=== PATIENT | female | born 1950 | race Caucasian/White ===

== ENCOUNTER 2025-03-08 08:12 | Outpatient (REF) | payer OTHER, SELFPAY ==
--- OUTSIDE RECORDS SUMMARY | 2025-03-04 10:30 | XMS_ITS | Encounter Summary ---
Author Organization [employer] Address [address] [place] [address] 7 [place] [address] Care Team Providers Care Mobile Equipment Mechanic Name Role Phone Demarcus Wilks MD Primary Care Prov ider Reason for Referral * Consultation (Routine) - Authorized Specialty Diagnoses / Procedures Referred By Contac t Referred To Contact Optometry Diagnoses Type 2 diabetes mellitus without complication, without long-term current use of insulin (HCC) Demarcus Wilks MD [address] [place] [address] Phone: tel: fax: [facility] [place] [address] [place] [address] Phone: tel:[phone] fax: Referral ID Status Reason Start Date Expiration Date Visits Requested Visits Authorized [id number] Authorized Specialty Services Required 03/04/2025 03/04/2026 1 1 Encounter Details Date Type Department Care Team ([facility] st Contact Info) Description 03/04/2025 10:30 AM EST Telemedicine [facility] CHC MED & PEDS [address] [place] [address] Demarcus Wilks MD [address] [place], [place] [phone] Type 2 diabetes mellitus without complication, without long-term current use of insulin (HCC) (Primary Dx); Primary hypertension Social History Tobacco Use Types Packs/Day Years Used Date Smoking Tobacco: Former Cigarettes 0.3 26 S tarted: 1984 Smokeless Tobacco: Current Alcohol Use Standard Drinks/Week Comments Never 0 (1 standard drink = 0.6 oz pur e alcohol) Depression Answer Date Recorded Patient Health Questionnaire-9 Score 11 02/28/2025 Patient Health Questionnaire-9 Score 11 02/28/2025 Last PHQ-9: Questionnaire Data Not on file 1 Housing Stability Answer Date Recorded What is your housing situation today? I do not have housing (Staying with others, in a hotel, in a chcf, living outside on the street, on a beach, in a car, or in a park 01/18/[address] you li ve. Do you have problems with any of the following? None of the above 01/18/2025 Food Insecurity Answer Date Recorded Within the past 12 months, y ou worried that your food would run out before you got money to buy more: Never True 2024 Within the past 12 months,th e food you bought just didn't last and you didn't have enough money to get more: Sometimes True 01/18/2025 Transportation Answer Date Recorded In the past 12 months, has l ack of transportation kept you from medical appts, meetings, work or from getting things needed for daily living? Yes, it has kept me from non-medical meetings, work, or getting things that I need 01/18/2025 Utilities Answer Date Recorded In the past 12 months, has t he [employer], gas, oil or water [employer] threatened to shut off services in your home? No 01/18/2025 Depression Answer Date Recorded Patient Health Questionnaire-2 Score 2 02/28/2025 Internet Access Answer Date Recorded Internet Access Q1 Yes 01/18/2025 Internet Access Q2 Not on file 01/18/2025 Comments Unknown Sex and Gender Information Value Date Recorded Sex Assigned at Female 01/17/2025 4:41 PM EDT Legal Sex Female 4:40 PM EDT Gender Identity Female 01/18/2025 8:58 AM EDT Sexual Orientation Straight 01/18/2025 8: 58 AM EDT documented as of this encounter Progress Notes * Demarcus Rodrigues MD - 03/04/2025 10:30 AM EST Subjective Patient ID: Pratibha Taveras is a 74 y.o. female who presents for No chief complaint on file.. Diabetes She presents for her follow-up diabetic visit. She has type 2 diabetes mellitus. Her disease coursehas been stable. Pertinent negatives for diabetes include no foot ulcerations, no polydipsia, no polyphagia and no polyuria. Review of Systems Endocrine: Negative for polydipsia, polyphagia and polyuria. Objective Physical Exam Neurological: General: No focal deficit present. Mental Status: She is oriented to person, place, and time. Psychiatric: Mood and Affect: Mood normal. Behavior: Behavior normal. Assessment/Plan Problem List Items Addressed This Visit Type 2 diabetes mellitus without complication, without long-term current use of insulin (HCC) - Primary [facility], keep low carb/no sugar diet, follow up in 2 months with new labs Relevant Orders CBC auto differential Comprehensive Metabolic Panel Lipid Panel, Standard Hemoglobin A1c Albumin, Random Urine W/Creatinine TSH W/Reflex to FT4 Hepatitis C Antibody with Reflex to HCV, RNA, Quantitative, Real-Time PCR Referral to Optometry Primary hypertension New blood pressure monitor will be ordered, keep low sodium diet and exercise as tolerated, keep blood pressure <130/80, follow up in 2 months documented in this encounter Miscellaneous Notes * Assessment & Plan Note - Dmearcus Rodrigues MD - 03/04/2025 11:58 AM ESTAssociated Problem(s): Type 2 diabetes mellitus without complication, without long-term current useof insulin (HCC) [facility], keep low carb/no sugar diet, follow up in 2 months with new labs * Assessment & Plan Note - Demarcus Rodrigues MD - 03/04/2025 11:57 AM ESTAssociated Problem(s): Primary hypertension New blood pressure monitor will be ordered, keep low sodium diet and exercise as tolerated, keep blood pressure <130/80, follow up in 2 months documented in this encounter Plan of Treatment Upcoming Encounters Date Type Department Care Team (Late st Contact Info) Description 06/28/2025 1:00 PM EST Office Visit [facility] OPTOMETRY [address] [place], [place] [phone] Hilary Frias, OD [address] [place] [address] Scheduled Orders Name Type Priority Associated Diagnoses Orde r Schedule CBC auto differential Lab Routine Type 2 diabetes mellitus without complication, without long-term current use of insulin (HCC) Expected: 03/04/2025 (Approximate), Expires: 03/04/2026 Comprehensive Metabolic Panel Lab Routine Type 2 diabetes mellitus without complication, without long-term current use of insulin (HCC) Expected: 03/04/2025 (Approximate), Expires: 03/04/2026 Lipid Panel, Standard Lab Routine Type 2 diabetes mellitus without complication, without long-term current use of insulin (HCC) Expected: 03/04/2025 (Approximate), Expires: 03/04/2026 Hemoglobin A1c Lab Routine Type 2 diabetes mellitus without complication, without long-term current use of insulin (HCC) Expected: 03/04/2025 (Approximate), Expires: 03/04/2026 Albumin, Random Urine W/Creatinine Lab Routine Type 2 diabetes mellitus without complication, without long-term current use of insulin (HCC) Expected: 03/04/2025 (Approximate), Expires: 03/04/2026 TSH W/Reflex to FT4 Lab Routine Type 2 diabetes mellitus without complication, without long-term current use of insulin (HCC) Expected: 03/04/2025 (Approximate), Expires: 03/04/2026 Hepatitis C Antibody with Reflex to HCV, RNA, Quantitative, Real-Time PCR Lab Routine Type 2 diabetes mellitus without complication, without long-term current use of insulin (HCC) Expected: 03/04/2025, Expires: 03/04/2026 Scheduled Referrals Name Type Priority Associated Diagnoses Orde r Schedule Referral to Optometry Outpatient Referral Routine Type 2 diabetes mellitus without complication, without long-term current use of insulin (HCC) Expected: 03/04/2025 (Approximate), Expires: 03/04/2026 documented as of this encounter Visit Diagnoses Diagnosis Type 2 diabetes mellitus without complication, without long-term current use of insulin (HCC)- Primary Primary hypertension Unspecified essential hypertension documented in this encounter Additional Health Concerns Assessment Noted Time PHQ-9 Depression Total Score: 11 025 2:48 PM EDT documented as of this encounter Care Teams Mobile Equipment Mechanic Relationship Specialty Start Date End Date Demarcus Wilks MD [address] [place] [id number] PCP - General Internal Medicine 01/18/25 documented as of this encounter
--- OUTSIDE RECORDS SUMMARY | 2025-03-08 08:33 | XMS_ITS | Encounter Summary ---
Author Organization [employer] Address [address] [facility] 7t [place] [address] Care Team Providers Care Fund Accountant Name Role Phone Demarcus Wilks MD Primary Care Prov ider Encounter Details Date Type Department Care Team (Latest Contact Info) Description 03/04/2025 Travel Social History Tobacco Use Types Packs/Day Years [...] with others, in a hotel, in a snf, living outside on the street, on a [...] the past 12 months, has t he electric, gas, oil or water company threatened to shut off services in your [...] AM EDT documented as of this encounter Plan of Treatment Upcoming Encounters Date Type Department Care Team (Late st Contact Info) Description 06/28/2025 1:00 PM EST Office Visit [facility] OPTOMETRY [address] [place] [address] Hilary Frias, OD [address] [place] [address] documented as of this encounter Visit Diagnoses Not on filedocumented in this encounter Additional Health Concerns Assessment Noted Time PHQ-9 Depression Total Score: 11 025 2:48 PM EDT documented as of this encounter Care Teams Fund Accountant Relationship Specialty Start Date End Date Demarcus Wilks MD [address] [place] [address] PCP - General Internal Medicine 01/18/25 documented as of this encounter
--- OUTSIDE RECORDS SUMMARY | 2025-03-08 08:33 | XMS_ITS | Encounter Summary ---
Author Organization [employer] Address [address] [place] [address] 7t [place] [address] Care Team Providers Care Manager Trust Name Role Phone Demarcus Wilks MD Primary Care Prov ider Reason for Referral * Consultation (Urgent) - Authorized Specialty Diagnoses / Procedures Referred By Contac t Referred To Contact Gastroenterology Diagnoses Positive colorectal cancer screening using Cologuard test Demarcus Wilks MD [address] [place] [address] Phone: tel: fax: Imelda Lan MD [address] [place] [address] Phone: tel: fax: Referral ID Status Reason Start Date Expiration Date Visits Requested Visits Authorized [id number] Authorized Specialty Services Required 02/26/2026 1 1 Encounter Details Date Type Department Care Team ([facility] st Contact Info) Description 02/26/2025 Telephone [facility] CHC MED & PEDS [address] [place], [place] [phone] Demarcus Wilks MD [address] [place], [place] [phone] Social History Tobacco Use Types Packs/Day Years [...] with others, in a hotel, in a correction, living outside on the street, on a [...] AM EDT documented as of this encounter Functional Status * Over the past 2 weeks, how often have you been bothered by any of the following problems? Question Answer Date of Assessment Author Patient Health Questionnaire-2 Score 2 02/28/2025 2:48 PM EDT Jona Mcintosh * Little interest or pleasure in doing things Answer Date of Assessment Author Several days 02/28/2025 2:48 PM EDT Jona Berrios * Feeling down, depressed, or hopeless Answer Date of Assessment Author Several days 02/28/2025 2:48 PM EDT Jona Berrios * Trouble falling or staying asleep, or sleeping too much Answer Date of Assessment Author More than half the days 02/28/2025 2:48 PM EDT Jona Issa * Feeling tired or having little energy Answer Date of Assessment Author Several days 02/28/2025 2:48 PM EDT Jona Berrios * Poor appetite or overeating Answer Date of Assessment Author More than half the days 02/28/2025 2:48 PM EDT Jona Issa * Feeling bad about yourself - or that you are a failure or have let yourself or your family down Answer Date of Assessment Author More than half the days 02/28/2025 2:48 PM EDT Jona Issa * Trouble concentrating on things, such as reading the newspaper or watching television Answer Date of Assessment Author Several days 02/28/2025 2:48 PM EDT Jona Berrios * Moving or speaking so slowly that other people could have noticed? Or the opposite - being so fidgety or restless that you have been moving around a lot more than usual. Answer Date of Assessment Author Several days 02/28/2025 2:48 PM EDT Jona Berrios * Thoughts that you would be better off or hurting yourself in some way Answer Date of Assessment Author Not at all 02/28/2025 2:48 PM EDT Jona Berrios * Patient Health Questionnaire-9 Score Answer Date of Assessment Author 11 02/28/2025 2:48 PM EDT Jona Berrios * How difficult have these problems made it for you to do your work, take care of things at home, or get along with other people? Answer Date of Assessment Author Somewhat difficult 02/28/2025 2:48 PM EDT Jona Ramirez * Over the last 2 weeks, how often have you been bothered by any of the following problems? Question Answer Date of Assessment Author Feeling nervous, anxious, or on edge 1 02/28/2025 2:48 PM EDT Jona Zhang Not being able to stop or control worrying 1 02/28/2025 2:48 PM EDT Jona Zhang Worrying too much about different things 2 02/28/2025 2:48 PM EDT Jona Zhang Trouble relaxing 1 02/28/2025 2:48 PM EDT Jona Issa Being so restless that it is hard to sit still 2 02/28/2025 2:48 PM EDT Jona Zhang Becoming easily annoyed or irritable 0 02/28/2025 2:48 PM EDT Jona Zhang Feeling afraid as if something awful might happen 2 02/28/2025 2:48 PM EDT Jona Sosa CELIA-7 Total Score 9 02/28/2025 2:48 PM EDT Jona Zhang documented as of this encounter Plan of Treatment Upcoming Encounters Date Type Department Care Team (Late st Contact Info) Description 06/28/2025 1:00 PM EST Office Visit [facility] OPTOMETRY [address] [place] [address] Hilary Frias, OD [address] [place] [address] Scheduled Referrals Name Type Priority Associated Diagnoses Order Schedule Referral to Gastroenterology Outpatient Referral Urgent Positive colorectal cancer screening using Cologuard test Expected: 02/26/2025 (Approximate), Expires: 02/26/2026 documented as of this encounter Visit Diagnoses Diagnosis Positive colorectal cancer screening using Cologuard test- Primary documented in this encounter Additional Health Concerns Assessment Noted Time PHQ-9 Depression Total Score: 8 01/19/20 25 9:27 AM EDT documented as of this encounter Care Teams Manager Trust Relationship Specialty Start Date End Date Demarcus Wilks MD [address] [place] [id number] PCP - General Internal Medicine 01/18/25 documented as of this encounter
--- OUTSIDE RECORDS SUMMARY | 2025-03-08 08:34 | XMS_ITS | Encounter Summary ---
Author Organization [employer] Address [address] [place] [address] 7t [place] [address] Care Team Providers Care Industrial Sociologist Name Role Phone Demarcus Wilks MD Primary Care Prov ider Reason for Visit * Reason Onset Date Comments Med Refill 02/27/2025 Encounter Details Date Type Department Care Team ([facility] st Contact Info) Description 02/27/2025 Refill [facility] CHC MED & PEDS [address] [place], [place] [phone] Demarcus Wilks MD [address] [place] [address] Neuropathy Social History Tobacco Use Types Packs/Day Years [...] Several days 02/28/2025 2:48 PM EDT Jona Sosa * Poor appetite or overeating Answer Date [...] might happen 2 02/28/2025 2:48 PM EDT Jnoa Sosa CELIA-7 Total Score 9 02/28/2025 2:48 PM EDT Jona Zhang documented as of this encounter Plan of Treatment Upcoming Encounters Date Type Department Care Team (Late st Contact Info) Description 06/28/2025 1:00 PM EST Office Visit [facility] OPTOMETRY [address] [place], [place] [phone] Hilary Frias, OD [address] [place] [address] documented as of this encounter Visit Diagnoses Diagnosis Neuropathy Mononeuritis of unspecified site documented in this encounter Additional Health Concerns Assessment Noted Time PHQ-9 Depression Total Score: 8 01/19/20 25 9:27 AM EDT documented as of this encounter Care Teams Industrial Sociologist Relationship Specialty Start Date End Date Demarcus Wilks MD [address] [place] [address] PCP - General Internal Medicine 01/18/25 documented as of this encounter
--- OUTSIDE RECORDS SUMMARY | 2025-03-08 08:34 | XMS_ITS | Encounter Summary ---
Author Organization [email or web address] Address [address] [place] [address] 7[address] [place] [address] Care Team Providers Care As400 Administrator Name Role Phone Demarcus Wilks MD Primary Care Prov ider Reason for Visit * Reason Onset Date Comments pt1 02/04/2025 Encounter Details Date Type Department Care Team ([facility] st Contact Info) Description 02/04/2025 Telephone [facility] CHC MED & PEDS [address] [place], [place] [phone] Demarcus Wilks MD [address] [place] [address] pt1 Social History Tobacco Use Types Packs/Day Years Used Date Smoking Tobacco: Former Cigarettes 0.3 26 S tarted: 1984 Smokeless Tobacco: Current Alcohol Use Standard Drinks/Week Comments Never 0 (1 standard drink = 0.6 oz pur e alcohol) Depression Answer Date Recorded Patient Health Questionnaire-9 Score 8 01/18/2025 Patient Health Questionnaire-9 Score 8 01/18/2025 Last PHQ-9: Questionnaire Data Not on file 0 01/18/2025 Housing Stability Answer Date Recorded What is your housing situation today? I do not have housing (Staying with others, in a hotel, in a nursing home, living outside on the street, on a [...] Date Recorded Patient Health Questionnaire-2 Score 2 01/18/2025 Internet Access Answer Date Recorded Internet Access Q1 Yes 01/18/2025 Internet Access Q2 Not on file 01/18/2025 Comments Unknown Sex and Gender Information Value Date Recorded Sex Assigned at Female 01/17/2025 4:41 PM EDT Legal Sex Female 4:40 PM EDT Gender Identity Female 01/18/2025 8:58 AM EDT Sexual Orientation Straight 01/18/2025 8: 58 AM EDT documented as of this encounter Miscellaneous Notes * Telephone Encounter - Mick Mahajan - 02/04/2025 2:32 PM EDT Patient calling requesting PT1 Home Address verified: Y/N: Yes Provider name or facility name: [address] Escort needed: Y/N: No Do you have a wheelchair: Y/N: No Visits: (2x month) documented in this encounter Plan of Treatment Upcoming Encounters Date Type Department Care Team (Late st Contact Info) Description 06/28/2025 1:00 PM EST Office Visit [facility] OPTOMETRY [address] [place] [address] Hilary Frias, OD [address] [place] [address] documented as of this encounter Visit Diagnoses Not on filedocumented in this encounter Additional Health Concerns Assessment Noted Time PHQ-9 Depression Total Score: 8 01/19/20 25 9:27 AM EDT documented as of this encounter Care Teams As400 Administrator Relationship Specialty Start Date End Date FernnadezDemarcus Jimenez MD [address] [place] [id number] PCP - General Internal Medicine 01/18/25 documented as of this encounter
--- OUTSIDE RECORDS SUMMARY | 2025-03-08 08:34 | XMS_ITS | Clinical Summary ---
Author Organization [employer] Address [address] [place] [address] Care Team Providers Care Rn Admit Name Role Phone Demarcus Wilks MD Primary Care Prov ider Allergies Active Allergy Reactions Criticality Noted Date Comments Penicillins Swelling High 01/18/2025 Medications * This document contains information received from the source organization and may not represent a complete record from that organization. levothyroxine (Synthroid, Levoxyl) 125 MCG tablet Take 12.5 mcg by mouth before breakfast. Active glimepiride (Amaryl) 4 MG tablet Take 4 mg by mouth before breakfast. Active lisinopril 40 MG tablet Take 40 mg by mouth Once per day. Active SITagliptin-me tFORMIN (Janumet) 50-1000 MG tablet Take 1 tablet by mouth with breakfast and with evening meal. 180 tablet 3 01/19/20 25 Active famotidine (Pepcid) 20 MG tablet Take 1 tablet (20 mg) by mouth if needed at bedtime for heartburn. 90 tablet 3 01/19/20 25 026 Active gabapentin (Neurontin) 300 MG capsuleIndicat ions:Neuropath y Take 1 capsule (300 mg) by mouth at bedtime. 30 capsule 02/23/20 25 025 Active gabapentin (Neurontin) 300 MG capsule Take 1 capsule (300 mg) by mouth at bedtime. 30 capsule 1 02/22/20 Active FREESTYLE LITE test strip Use to test blood sugar 2 times daily 100 each 12 02/28/20 25 Active Lancets misc Use to test blood sugar 2 times daily 100 each 02/28/20 Active Alcohol Swabs 70 % pads Use to test blood sugar 2 times daily 100 each 02/28/20 Active Blood Glucose Monitoring Suppl (FreeStyle [place] Lite) w/Device kit Use to test blood sugar 2 times daily 1 kit 02/28/20 Active simvastatin (Zocor) 40 MG tablet Take 1 tablet (40 mg) by mouth at bedtime. 90 tablet 3 02/28/20 Active Blood Pressure kit 1 kit Once per day. 1 kit 03/04/20 Active simvastatin (Zocor) 40 MG tablet Take 40 mg by mouth at bedtime. Discontinued(Re order (will not trigger notification to Pharmacy)) gabapentin (Neurontin) 300 MG capsule Take 300 mg by mouth at bedtime. 025 Discontinued(Re order (will not trigger notification to Pharmacy)) Active Problems Problem Noted Date Diagnosed Date Type 2 diabetes mellitus wit hout complication, without long-term current use of insulin 03/04/2025 Assessment & Plan (03/04/2025 11:58 AM EST): [facility] keep low carb/no sugar diet, follow up in 2 months with new labs Primary hypertension 03/04/2025 Assessment & Plan (03/04/2025 11:57 AM EST): New blood pressure monitor will be ordered, keep low sodium diet and exercise as tolerated, keep blood pressure <130/80, follow up in 2 months Anxiety about health 02/28/2025 Positive colorectal cancer screening using Colog uard test 02/27/2025 Assessment & Plan (02/27/2025 12:39 PM EDT): Discussed findings with patient , will refer to gastroenterology, phone number provided Encounter for medical examination to establish c are 01/18/2025 Assessment & Plan (01/18/2025 10:05 AM EDT): Last pcp visit 6-8 months ago ER: - Hospitalization: stroke 2011 left sided weakness Pmhx: DM, HTN, thyroid, hyperlipidemia, gerd Pshx: csec x2 , tonsillectomy 1955 All: PNC Meds: as above A0 Encounters * This document contains information received from the source organization and may not represent a complete record from that organization. Date Type Department Care Team Description 03/04/2025 10:30 AM EST Telemedicine [facility] [address] [place] [address] Demarcus Wilks MD Type 2 diabetes mellitus without complication, without long-term current use of insulin (HCC) (Primary Dx); Primary hypertension 03/04/2025 Travel 02/28/2025 Travel 02/27/2025 11:30 AM EDT Telemedicine [facility] [address] [place] [address] Demarcus Wilks MD Positive colorectal cancer screening using Cologuard test (Primary Dx) 02/27/2025 Refill [facility] [address] [place] [address] Demarcus Wilks MD Neuropathy 02/27/2025 Travel 02/26/2025 Telephone [facility] [address] [place] [address] Demarcus Wilks MD 02/26/2025 Telephone [facility] [address] [place] [address] Demarcus Wilks MD 02/25/2025 Travel 02/23/2025 Telephone [facility] [address] [place] [address] Demarcus Wilks MD Chart Prep 02/21/2025 Orders Only [facility] [address] [place] [address] Demarcus Wilks MD 02/21/2025 Travel 02/20/2025 Travel 02/20/2025 Refill [facility] [address] [place] [address] Demarcus Wilks MD Neuropathy 02/12/2025 Patient Outreach [facility] [address] [place] [address] Demarcus Wilks MD Care Coordination (CH[facility] outreach for SDOH housing search-referral completed ) 02/12/2025 Telephone [facility] [address] [place] [address] Demarcus Wilks MD MAMMOGRAM ORDER 02/04/2025 Patient Outreach [facility] [address] [place] [address] Demarcus Wilks MD Care Coordination ([facility] outreach for SDOH PT-1 and food needs-LVM ) 02/04/2025 Telephone [facility] [address] [place] [address] Demarcus Wilks MD pt1 01/18/2025 9:45 AM EDT Telemedicine [facility] [address] [place] [address] Demarcus Wilks MD Encounter for medical examination to establish care (Primary Dx); Screening for colon cancer; Encounter for screening mammogram for malignant neoplasm of breast; Current mild episode of major depressive disorder without prior episode (CMS/HCC) 01/18/2025 Travel from Last 3 Months Family History Medical History Relation Name Comments Stroke Father Diabetes Mother Hepatitis Mother Kidney failure Mother Relation Name Status Comments Father Mother Social History Tobacco Use Types Packs/Day Years Used Date Smoking Tobacco: Former Cigarettes 0.3 26 S tarted: 1985 Smokeless Tobacco: Current Alcohol Use Standard Drinks/Week [...] with others, in a hotel, in a prison, living outside on the street, on a [...] Orientation Straight 01/18/2025 8: 58 AM EDT Plan of Treatment Upcoming Encounters Date Type Department Care Team (Late st Contact Info) Description 06/28/2025 1:00 PM EST Office Visit [facility] [address] [place] [address] Hilary Frias, OD [address] [place] [address] Health Maintenance Due Date Last Done Comments CT Colonography 1951 Colonoscopy 1950 Diabetes: Hemoglobin A1C 1951 FIT 1951 Lipid Panel 1950 Sigmoidoscopy 1951 Diabetes: Foot Exam 07/12/1961 Eye Exam 07/12/1961 Hepatitis C Screening 07/12/1969 DTaP/Tdap/Td Vaccines (1 - Tdap) 07/12/1970 Diabetes: Urine Protein Screening 07/12/1970 Pneumococcal Vaccine: 50+ Years (1 of 2 - PCV) 07/12/1970 Mammogram 1991 Zoster Vaccines (1 of 2) 07/12/2001 COVID-19 Vaccine (1 - 2023-2 5 season) 2024 Depression Monitoring 08/29/2025 02/28/2025 , 02/28/2025 SDOH Screening 01/18/2026 01/18/2025 Tobacco Screening 01/18/2026 01/18/2025 FOBT 02/05/2026 02/05/2025 Alcohol/Substance Use Screening 02/26/2026 02/26/2025 RSV Patients and Patients Aged 60 years or older (1 - 1-dose 75+ series) 07/12/2026 Colorectal Cancer Screening 02/06/2028 FIT DNA/Cologuard 02/06/2028 02/05/2025 Influenza Vaccine Completed 02/08/2025 HIB Vaccines Aged Out No longer eligi ble based on patient's age to complete this topic HPV Vaccines Aged Out No longer eligi ble based on patient's age to complete this topic Hepatitis A Vaccines Aged Out No long er eligible based on patient's age to complete this topic Hepatitis B Vaccines Aged Out No long er eligible based on patient's age to complete this topic IPV Vaccines Aged Out No longer eligi ble based on patient's age to complete this topic Meningococcal B Vaccine Aged Out No l onger eligible based on patient's age to complete this topic Meningococcal Vaccine Aged Out No thiago acacia eligible based on patient's age to complete this topic RSV under 20 months Aged Out No longe r eligible based on patient's age to complete this topic Rotavirus Vaccines Aged Out No longer eligible based on patient's age to complete this topic Procedures Procedure Name Priority Date/Time Associated Diagnosis Comments LAB COLOGUARD COLON CANCER SCREEN Routine 02/05/2025 10:07 AM EDT Screening for colon cancer from Last 3 Months Results * (ABNORMAL) Cologuard?? colon cancer screening (02/05/2025 10:07 AM EDT) Cologuard Result Positive( A) Negative 02/12/2025 11:06 AM EDT [facility] (CLIA #:[id number]) Comment: The Cologuard Plus (TM) test was performed on this specimen. POSITIVE TEST RESULT. A positive (abnormal) Cologuard Plus result means the patient has a [id number]-kiyqrra chance of having colorectal cancer (CRC) or precancer (polyps or lesions that could become cancer). The normal value (reference range) for this assay is negative. A positive result should be followed by a colonoscopy to locate and confirm the presence of cancer or precancer. A positive Cologuard Plus result is not a cancer diagnosis. The federal government now considers the colonoscopy following a positive Cologuard Plus test result a covered preventive service. Call for more information. A clinical validation study measured the effectiveness of the Cologuard Plus test. Out of 100 patients testing positive: approximately 3 patients will have CRC; 34 patients will have advanced precancer; 33 will have a non-advanced precancer; and 30 will have no cancer or precancer. TEST DESCRIPTION: The Cologuard Plus test is a multi-target stool DNA (mt-sDNA) test that analyzes DNA and hemoglobin biomarkers in stool. It uses a proprietary algorithm to qualitatively detect CRC and advanced precancer. It is FDA-approved and indicated for use in adults 45 years or older at average risk for CRC. A positive (abnormal) result should be followed by a colonoscopy. Patients with a negative (normal) result should screen again in 3 years. False positive and false negative results may occur. The USPSTF recommends the Cologuard test as a CRC screening option. Their modeling estimates that screening with the test every 3 years from ages 45-85 could prevent up to 73% of CRC and avoid up to 85% of CRC deaths. A 18,911-patient clinical trial found the Cologuard Plus test effectively detects CRC and precancer. The study found the test was 95% sensitive for CRC, 43% sensitive for advanced precancer, and had a 91% specificity (Cologuard Plus Clinician Brochure. [employer]. [place], [place].). Visit [email or web address]/[email or web address]-[email or web address]-[email or web address] for more test information, references, warnings, and precautions. Stool specimen (specimen) 02/05/2025 10:07 AM EDT 02/06/2025 1:34 PM EDT Demarcus Rodrigues MD LAB MOLECULAR DIAG NOSTICS ORDERABLES Final Result [facility] (CLIA #:[id number]) [address] [place] [address], [place] [phone] from Last 3 Months Insurance [facility] [employer] (HMO D-SNP) Care Teams Rn Admit Relationship Specialty Start Date End Date Demarcus Wilks MD [address] [place] [phone] PCP - General Internal Medicine 01/18/25
[2025-03-08 11:23] LABS: MANUAL DIFF FLAG NO
[2025-03-08 11:38] LABS: Hematocrit 39.7 % (37.0-47.0); Hemoglobin 12.6 g/dl (12.0-16.0); Imm Gran Abs Auto 0.01 X10*3/uL (0.00-0.03); Imm Gran Pct Auto 0.1 % (0.0-0.4); Lymphocytes Absolute Auto 2.4 X10*3/uL (1.2-4.9); Mean Corpuscular HGB Conc 31.7 g/dl (31.0-35.0); Mean Corpuscular Hemoglobin 30.5 pg (27.0-33.0); Mean Corpuscular Volume 96.1 fL (80.0-98.0); NRBC Abs Auto 0.000 X10*3/uL (0.0-0.012); NRBC Pct Auto 0.0 /100WBC (0.0-0.2); Platelet Count 230 X10*3/uL (160-400); Red Blood Count 4.13 X10*6/uL (4.20-5.50); White Blood Count 6.9 X10*3/uL (4.8-10.8)
[2025-03-08 12:06] LABS: Alanine Aminotransferase 16 U/L (0-31); Albumin Level 4.5 g/dL (3.5-5.0); Alkaline Phosphatase 59 U/L (39-117); Anion Gap 11 (12-20); Aspartate Amino Transferase 25 U/L (5-31); Blood Urea Nitrogen 13 mg/dL (9-16); Calcium 9.8 mg/dL (8.4-10.2); Carbon Dioxide 29 mmol/L (22-29); Chloride 107 mmol/L (96-108); Cholesterol 128 mg/dL (<200); Estimated Glomerular Filt Rate > 60; HDL Cholesterol 49 mg/dL (>40); Potassium 4.8 mmol/L (3.3-5.1); Sodium 142 mmol/L (135-145); Total Protein 7.2 g/dL (6.5-8.0); Triglycerides 158 mg/dL (<150)
[2025-03-08 12:14] LABS: ~HepC Num1 0.08 S/CO (0.00-0.79); ~Hepatitis C Antibody Nonreactive (Nonreactive)
[2025-03-08 12:24] LABS: Microalbum/Creatinine Ratio Ur 264.7 ug/mg cr (<30)
== END 2025-03-08 08:13 | disposition home or self-care (01) ==
LOC: HO.HHCL 08:12
PROVIDERS: PCP Internal Medicine; Visit Provider Internal Medicine
DX: E11.9 Type 2 diabetes mellitus without complications (principal)
CPT/HCPCS: 36415; 80053; 80061; 82043; 82570; 83036; 84443; 85025; 86803

== ENCOUNTER 2025-04-29 12:04 | Outpatient (AMB) | payer OTHER, MEDICAID, SELFPAY ==
--- NOTE | 2025-04-29 12:11 | MHC.OFFVIS ---
Vital Signs 04/29/25 12:13 Height 5 ft 2 in Weight 156 lb 8.451 oz BMI 28.6 BP 147/72 H Blood Pressure Location Lt brachial Position Sitting Pulse 75 Intake Visit Reasons: positive cologuard Intake Note: Pratibha presents in the office as a new patient for a positive cologuard. CC: Patient not having any concerns but she is unsure of medications that she takes - she called son to confirm. [facility]. She states that she lived [place] and having eye surgery in Jun - she states she is going back to [place] in Jun. Rheumatology Specialist Required: No Allergies Penicillins (PCN) Allergy (Mild, Verified 04/29/25 12:17) Unknown HPI Comments Details: The patient is a 74 year old female presenting for consultation regarding a positive Cologuard test performed in January. She was asymptomatic at the time of the test and denies any abdominal pain, nausea, vomiting, diarrhea, or blood in the stool. This is the patient's first gastroenterology consultation, and she has never had a colonoscopy before, previously opting for stool-based screening. She has a family history of colon cancer in her mother, who was diagnosed at age 61 and at age 69. Does not report any cardiopulmonary disease, no issues with anesthesia in the past. Has DM and on jardiance. Review of Systems Narrative Review of Systems - Gastrointestinal: Denies abdominal pain, nausea, vomiting, diarrhea, and blood in stool. - Cardiovascular: Denies any known heart issues. - Respiratory: Denies any known lung issues. Physical Exam Exam Exam: No apparent distress Nonicteric Abdomen soft, nondistended Alert and oriented x3, normal gait Vital Signs: Last Vital Signs Pulse 75 04/29/25 12:13 BP 147/72 H 04/29/25 12:13 BMI result Body Mass Index 28.6 Assessment & Plan Assessment & Plan (1) Positive colorectal cancer screening using Cologuard test: Code(s): R19.5 - Other fecal abnormalities Category: Medical (2) Family history of colon cancer: Code(s): Z80.0 - Family history of malignant neoplasm of digestive organs Category: Medical Plan 1. Positive Cologuard test The patient is a 74-year-old female with a recent positive Cologuard test. A colonoscopy is indicated for further evaluation trevin as pt already high risk due to fam hx. Plan: - Sutab was prescribed as per pt preference. Instructions reviewed. - Hold jardiance for 3 days prior to colo - Pt was also advised that even if colo is neg, next colo should be in 5 years due to fam hx Follow up PRN Orders: Referrals GI Procedure Notification Z80.0 - Family history of malignant neoplasm of digestive organs Medications: New sod sulf-pot chloride-mag sulf 1.479-0.188- 0.225 gram (Sutab) PO PER PKG DIR 1 kit 0RF Coding Level of Care Code New Pt Level 3 (45362) Diagnoses Positive colorectal cancer screening using Cologuard test R19.5 Family history of colon cancer Z80.0
[2025-04-29 12:13] VITALS: BP 147/72; PULSE 75; BMI 28.6
--- OUTSIDE RECORDS SUMMARY | 2025-04-29 14:11 | XMS_ITS | Encounter Summary ---
Author Organization [employer] Address [address] [place] [address] [facility] [place] [address] Care Team Providers Care Manager Call Name Role Phone Demarcus Wilks MD Primary Care Prov ider Reason for Referral * Consultation (Urgent) - Authorized Specialty Diagnoses / Procedures Referred By Contac t Referred To Contact Gastroenterology Diagnoses Positive colorectal cancer screening using Cologuard test Demarcus Wilks MD [address] [place] [address] Phone: tel: fax: Imelda Lan MD [address] [place] [address] [place] [phone] Phone: tel: fax: Referral ID Status Reason Start Date Expiration Date Visits Requested Visits Authorized [id number] Authorized Specialty Services Required 02/26/2026 1 1 Encounter Details Date Type Department Care Team ([facility] st Contact Info) Description 02/26/2025 Telephone [facility] [address] [place], [place] [phone] Demarcus Wikls MD [address] [place], [place] [phone] Social History Tobacco Use Types Packs/Day Years [...] with others, in a hotel, in a alf, living outside on the street, on a [...] 8:58 AM EDT Sexual Orientation Straight 01/18/2025 8 :58 AM EDT documented as of this encounter Plan of Treatment Upcoming Encounters Date Type Department Care Team (Late st Contact Info) Description 05/16/2025 10:30 AM EST Office Visit [facility] [address] [place] [address] Demarcus Wilks MD [address] [place] [address] 06/28/2025 1:00 PM EST Office Visit [facility] [address] [place] [address] Tarka Hilary, OD [address] [place] [address] Scheduled Referrals Name Type Priority Associated Diagnoses Order Schedule Referral to Gastroenterology Outpatient Referral Urgent Positive colorectal cancer screening using Cologuard test Expected: 02/26/2025 (Approximate), Expires: 02/26/2026 documented as of this encounter Visit Diagnoses Diagnosis Positive colorectal cancer screening using Cologuard test- Primary documented in this encounter Additional Health Concerns Assessment Noted Time PHQ-9 Depression Total Score: 8 01/19/20 9:27 AM EDT documented as of this encounter Care Teams Manager Call Relationship Specialty Start Date End Date Demarcus Wilks MD [address] [place] [address] PCP - General Internal Medicine 01/18/25 documented as of this encounter
--- OUTSIDE RECORDS SUMMARY | 2025-04-29 14:11 | XMS_ITS | Clinical Summary ---
Author Organization [employer] Address [address] [place] [address] [address] [place] [address] Care Team Providers Care Jewel Cupping Machine Operator Name Role Phone Demarcus Wilks MD Primary Care Prov ider Allergies Active Allergy Reactions Criticality Noted Date Comments Penicillins Swelling High 01/18/2025 Medications * This document contains information received from the source organization and may not represent a complete record from that organization. glimepiride (Amaryl) 4 MG tablet Take 4 mg by mouth before breakfast. Active lisinopril 40 MG tablet Take 40 mg by mouth Once per day. Active SITagliptin-me tFORMIN (Janumet) 50-1000 MG tablet Take 1 tablet by mouth with breakfast and with evening meal. 180 tablet 3 5 11:54 AM EST 01/19/20 25 Active famotidine (Pepcid) 20 MG tablet Take 1 tablet (20 mg) by mouth if needed at bedtime for heartburn. 90 tablet 3 5 11:54 AM EST 01/19/20 25 026 Active gabapentin (Neurontin) 300 MG capsule Take 1 capsule (300 mg) by mouth at bedtime. 30 capsule 1 02/22/20 25 Active FREESTYLE LITE test strip Use to test blood sugar 2 times daily 100 each 12 5 1:28 PM EST 02/28/20 25 10/29/2 026 Active Blood Glucose Monitoring Suppl (FreeStyle Reva Lite) w/Device kit Use to test blood sugar 2 times daily 1 kit 02/28/20 Active simvastatin (Zocor) 40 MG tablet Take 1 tablet (40 mg) by mouth at bedtime. 90 tablet 3 02/28/20 25 Active Blood Pressure kit 1 kit Once per day. 1 kit 03/04/20 Active empagliflozin (Jardiance) 10 MG Take 1 tablet (10 mg) by mouth Once per day. 30 tablet 11 5 12:48 PM EST 04/01/20 25 Active TRUEplus Lancets 33G misc TEST BLOOD SUGAR TWICE DAILY 100 each 11 04/18/20 Active Alcohol Swabs (Alcohol Prep) 70 % pads USE TO TEST BLOOD SUGAR TWICE DAILY 100 each 11 04/18/20 Active gabapentin (Neurontin) 300 MG capsuleIndicat ions:Neuropath y TAKE 1 CAPSULE BY MOUTH AT BEDTIME 30 capsule 04/18/20 Active levothyroxine (Synthroid, Levoxyl) 125 MCG tablet Take 1 tablet (125 mcg) by mouth before breakfast. 90 tablet 3 5 1:28 PM EST 04/29/20 Active levothyroxine (Synthroid, Levoxyl) 125 MCG tablet Take 12.5 mcg by mouth before breakfast. 025 Discontinued(Re order (will not trigger notification to Pharmacy)) gabapentin (Neurontin) 300 MG capsuleIndicat ions:Neuropath y Take 1 capsule (300 mg) by mouth at bedtime. 30 capsule 5 11:54 AM EST 02/23/20 25 025 Discontinued Lancets misc Use to test blood sugar 2 times daily 100 each 02/28/20 25 025 Discontinued Alcohol Swabs 70 % pads Use to test blood sugar 2 times daily 100 each 02/28/20 25 025 Discontinued Active Problems Problem Noted Date Diagnosed Date Moderate major depression, single episode (CMS/H CC) 04/04/2025 Microalbuminuria 04/01/2025 Assessment & Plan (04/01/2025 11:36 AM EST): Will add deandra, discussed risk of hypoglycemia, follow up in 1 month Type 2 diabetes mellitus wit hout complication, without long-term current use of insulin 03/04/2025 Assessment & Plan (03/04/2025 11:58 AM EST): On jennifer, keep low carb/no sugar diet, follow up in 2 months with new labs Primary hypertension 03/04/2025 Assessment & Plan (03/04/2025 11:57 AM EST): New blood pressure monitor will be ordered, keep low sodium diet and exercise as tolerated, keep blood pressure <130/80, follow up in 2 months Anxiety 02/28/2025 Positive colorectal cancer screening using Colog uard test 02/27/2025 Assessment & Plan (02/27/2025 12:39 PM EDT): Discussed findings with patient , will refer to gastroenterology, phone number provided Encounter for medical examination to establish c are 01/18/2025 Assessment & Plan (01/18/2025 10:05 AM EDT): Last pcp visit 6-8 months ago ER: - Hospitalization: stroke 2010 left sided weakness Pmhx: DM, HTN, thyroid, hyperlipidemia, gerd Pshx: csec x2 , tonsillectomy 1955 All: PNC Meds: as above A0 Encounters * This document contains information received from the source organization and may not represent a complete record from that organization. Date Type Department Care Team Description 04/29/2025 Telephone [facility] MED [facility] PEDS [address] [place] [address] Beena Buitrago, IVIS 04/29/2025 Orders Only [facility] MED [facility] PEDS [address] [place] [address] Demarcus Wilks MD 04/29/2025 Orders Only [facility] MED [facility] PEDS [address] [place] [address] Demarcus Wilks MD 04/24/2025 Telephone [facility] [address] [place] [address] Beena Buitrago, IVIS 04/17/2025 Refill [facility] MEDICINE [address] [place] [phone] Demarcus Wilks MD Neuropathy 04/10/2025 Patient Outreach [facility] MEDICINE [address] [place] [phone] Demarcus Wilks MD Care Coordination (CHW outreach for SDOH housing search-referral completed ) 04/10/2025 Patient Outreach [facility] MEDICINE [address] [place] [address] Demarcus Wilks MD Care Coordination (CHW outreach for SDOH PT-1 and food needs-no answer, LVM ) 04/01/2025 11:15 AM EST Telemedicine [facility] [address] [place] [address] Demarcus Wilks MD Microalbuminuria (Primary Dx) 04/01/2025 Travel 03/28/2025 Travel 03/08/2025 Orders Only [facility] MED [facility] PEDS [address] [place] [address] Vanda Salgado MD 03/04/2025 10:30 AM EST Telemedicine [facility] [address] [place] [address] Demarcus Wilks MD Type 2 diabetes mellitus without complication, without long-term current use of insulin (HCC) (Primary Dx); Primary hypertension 03/04/2025 Travel 02/28/2025 Travel 02/27/2025 11:30 AM EDT Telemedicine [facility] [address] [place] [address] Demarcus Wilks MD Positive colorectal cancer screening using Cologuard test (Primary Dx) 02/27/2025 Refill [facility] [address] [place] [address] Demarcus Wilks MD Neuropathy 02/27/2025 Travel 02/26/2025 Telephone [facility] [address] [place] [address] Demarcus Wilks MD 02/26/2025 Telephone [facility] [address] [place] [address] Demarcus Wilks MD 02/25/2025 Travel 02/23/2025 Telephone [facility] WALK-IN CENTER [address] [place] [phone] Demarcus Wilks MD Chart Prep 02/21/2025 Orders Only [facility] [address] [place] [address] Demarcus Wilks MD 02/21/2025 Travel 02/20/2025 Travel 02/20/2025 Refill [facility] [address] [place] [address] Demarcus Wilks MD Neuropathy 02/12/2025 Patient Outreach [facility] MEDICINE [address] [place] [phone] Demarcus Wilks MD Care Coordination (CH[facility] outreach for SDOH housing search-referral completed ) 02/12/2025 Telephone [facility] [address] [place] [address] Demarcus Wilks MD MAMMOGRAM ORDER 02/04/2025 Patient Outreach [facility] MEDICINE [address] [place] [phone] Demarcus Wilks MD Care Coordination (CHW outreach for SDOH PT-1 and food needs-LVM ) 02/04/2025 Telephone [facility] [address] [place] [address] Demarcus Wilks MD pt1 from Last 3 Months Family History Medical [...] with others, in a hotel, in a custodial, living outside on the street, on a [...] Description 05/16/2025 10:30 AM EST Office Visit [facility] CH[facility] MED & PEDS [address] [place] [address] Demarcus Wilks MD [address] [place] [address] 06/28/2025 1:00 PM EST Office Visit [facility] OPTOMETRY [address] [place] [address] Hilary Frias, OD [address] [place] [address] Health Maintenance Due Date Last Done Comments CT Colonography 1951 Colonoscopy 1950 FIT 1950 Sigmoidoscopy 1950 Diabetes: Foot Exam 07/12/1961 DTaP/Tdap/Td Vaccines (1 - Tdap) 07/12/1970 Pneumococcal Vaccine: 50+ Years (1 of 2 - PCV) 07/12/1970 Mammogram 1991 Zoster Vaccines (1 of 2) 07/12/2001 COVID-19 Vaccine (1 - 2024-2 6 season) 2024 Diabetes: Hemoglobin A1C 06/08/2025 03/08/2025 Depression Monitoring 08/29/2025 02/28/2025 , 02/28/2025 SDOH Screening 01/18/2026 01/18/2025 Tobacco Screening 01/18/2026 01/18/2025 FOBT 02/05/2026 02/05/2025 Alcohol/Substance Use Screening 02/26/2026 02/26/2025 Diabetes: Urine Protein Screening 03/08/2026 03/08/2025 Lipid Panel 03/08/2026 03/08/2025 RSV Patients and Patients Aged 60 years or older (1 - 1-dose 75+ series) 07/12/2026 Eye Exam 03/07/2027 03/07/2025 Colorectal Cancer Screening 02/06/2028 FIT DNA/Cologuard 02/06/2028 02/05/2025 Influenza Vaccine Completed 02/08/2025 Hepatitis C Screening Completed 03/08/2025 HIB Vaccines Aged Out No longer eligi [...] on patient's age to complete this topic Goals Goal Patient Goal Type Associated Problems Recent Progress Patient-Stated? Author Help patients manage their type 2 diabetes Care Plan Help patients manage their type 2 diabetes No Nataly Curry MA Weekly blood pressure task Care Plan Weekly blood pressure task No Nataly Curry MA Help patients manage their type 2 diabetes Care Plan Help patients manage their type 2 diabetes No Nataly Curry MA Patient has chronic kidney disease Care Plan Patient has chronic kidney disease No Nataly Curry MA Weekly blood pressure task Care Plan Weekly blood pressure task No Nataly Curry MA Patient has chronic kidney disease Care Plan Patient has chronic kidney disease No Nataly Curry MA Weekly blood pressure task Care Plan Weekly blood pressure task No Jona Mcintosh [facility] Weekly blood pressure task Care Plan Weekly blood pressure task No Jona Mcintosh [facility] Patient has chronic kidney disease Care Plan Patient has chronic kidney disease No Jona Mcintosh [facility] Patient has chronic kidney disease Care Plan Patient has chronic kidney disease No Jona Mcintosh [facility] Weekly blood pressure task Care Plan Weekly blood pressure task No Rafiq Js Weekly blood pressure task Care Plan Weekly blood pressure task No Rafiq Js Patient has chronic kidney disease Care Plan Patient has chronic kidney disease No Rafiq Js Patient has chronic kidney disease Care Plan Patient has chronic kidney disease No Rafiq Js Weekly blood pressure task Care Plan Weekly blood pressure task No Rafiq Js Weekly blood pressure task Care Plan Weekly blood pressure task No Rafiq Js Patient has chronic kidney disease Care Plan Patient has chronic kidney disease No Rafiq Js Patient has chronic kidney disease Care Plan Patient has chronic kidney disease No Rafiq Js Weekly blood pressure task Care Plan Weekly blood pressure task No Fidelina Vera SETTER OUT Weekly blood pressure task Care Plan Weekly blood pressure task No Fidelina Vera SETTER OUT Patient has chronic kidney disease Care Plan Patient has chronic kidney disease No Fidelina Vera SETTER OUT Patient has chronic kidney disease Care Plan Patient has chronic kidney disease No Fidelina Vera LPN Weekly blood pressure task Care Plan Weekly blood pressure task No Beena Buitrago RN Weekly blood pressure task Care Plan Weekly blood pressure task No Beena Buitrago RN Patient has chronic kidney disease Care Plan Patient has chronic kidney disease No Beena Buitrago RN Patient has chronic kidney disease Care Plan Patient has chronic kidney disease No Beena Buitrago RN Weekly blood pressure task Care Plan Weekly blood pressure task No Demarcus Wilks MD Weekly blood pressure task Care Plan Weekly blood pressure task No Demarcus Wilks MD Patient has chronic kidney disease Care Plan Patient has chronic kidney disease No Demarcus Wilks MD Patient has chronic kidney disease Care Plan Patient has chronic kidney disease No Demarcus Wilks MD Weekly blood pressure task Care Plan Weekly blood pressure task No Demarcus Wilks MD Weekly blood pressure task Care Plan Weekly blood pressure task No Demarcus Wilks MD Patient has chronic kidney disease Care Plan Patient has chronic kidney disease No Demarcus Wilks MD Patient has chronic kidney disease Care Plan Patient has chronic kidney disease No Demarcus Wilks MD Weekly blood pressure task Care Plan Weekly blood pressure task No Beena Buitrago RN Weekly blood pressure task Care Plan Weekly blood pressure task No Beena Buitrago RN Patient has chronic kidney disease Care Plan Patient has chronic kidney disease No Beena Buitrago RN Patient has chronic kidney disease Care Plan Patient has chronic kidney disease No Beena Buitrago RN Procedures Procedure Name Priority Date/Time Associated Diagnosis Comments HEPATITIS C AB W/REFL TO HCV RNA, QN, PCR Routine 03/08/2025 8:23 AM EST Type 2 diabetes mellitus without complication, without long-term current use of insulin (HCC) TSH W/REFLEX TO FT4 Routine 03/08/2025 8 :23 AM EST Type 2 diabetes mellitus without complication, without long-term current use of insulin (HCC) ALBUMIN, RANDOM URINE W/CREATININE Routine 03/08/2025 8:23 AM EST Type 2 diabetes mellitus without complication, without long-term current use of insulin (HCC) HEMOGLOBIN A1C Routine 03/08/2025 8:23 AM EST Type 2 diabetes mellitus without complication, without long-term current use of insulin (HCC) LIPID PANEL, STANDARD Routine 03/08/2025 8:23 AM EST Type 2 diabetes mellitus without complication, without long-term current use of insulin (HCC) COMPREHENSIVE METABOLIC PANEL Routine 03/08/2025 8:23 AM EST Type 2 diabetes mellitus without complication, without long-term current use of insulin (HCC) CBC WITH AUTO DIFFERENTIAL Routine 03/08/2025 8:23 AM EST Type 2 diabetes mellitus without complication, without long-term current use of insulin (HCC) HM DIABETES EYE EXAM Routine 03/07/2025 9:06 AM EST LAB COLOGUARD COLON CANCER SCREEN Routine 02/05/2025 10:07 AM EDT Screening for colon cancer from Last 3 Months Results * TSH W/Reflex to FT4 (03/08/2025 8:23 AM EST) TSH reflex Free T4 1.85 0.32 - 4.0 uIU/mL [facility] Blood Venous blood specimen / Unknown 03/08/2025 8:23 AM EST 03/08/2025 11:17 AM EST us Demarcus Rodrigues MD LAB BLOOD ORDERABL ES Final Result [facility] [address] [place] [phone] * (ABNORMAL) Albumin, Random Urine W/Creatinine (03/08/2025 8:23 AM EST) Creatinine, Urine 109.90 mg/dL [facility] Microalbumin Urine 291.0 mg/L [facility] Microalbum Creatinine Ratio Ur 264.7(H) <30 ug/mg cr [facility] Comment:Albumin/Creatinine R atio Reference Ranges: Normal: < 30 ug/mg creatinine Microalbuminuria: 30 - 300 ug/mg creatinineClinical Albuminuria: > 300 ug/mg creatinine Urine (Urine, Random) 03/08/2025 8:23 AM EST 03/08/2025 11:24 AM EST us Demarcus Rodrigues MD LAB URINE ORDERABL ES Final Result [facility] [address] [place] [phone] * (ABNORMAL) CBC auto differential (03/08/2025 8:23 AM EST) White Blood Count 6.9 4.8 - 10.8 X10*3/uL [facility] Red Blood Count 4.13(L) 4.20 - 5.50 X10*6/uL [facility] Hemoglobin 12.6 12.0 - 16.0 g/dl [facility] Hematocrit 39.7 37.0 - 47.0 % [facility] Mean Corpuscular Volume 96.1 80.0 - 98.0 fL [facility] Mean Corpuscular Hemoglobin 30.5 27.0 - 33.0 pg [facility] Mean Corpuscular HGB Conc 31.7 31.0 - 35.0 g/dl [facility] Red Cell Distribution Width 12.5 11.0 - 16.0 % [facility] Platelet Count 230 160 - 400 X10*3/uL [facility] Mean Platelet Volume 10.8 9.4 - 12.3 fL [facility] Neutrophils Percent Auto 54.4 45 - 73 % [facility] Imm Gran Pct Auto 0.1 0.0 - 0.4 % [facility] Lymphocytes Percent Auto 34.7 20 - 40 % [facility] Monocytes Percent Auto 7.1 2 - 11 % [facility] Eosinophils Percent Auto 3.0 0 - 4 % [facility] Basophils Percent Auto 0.7 0 - 2 % [facility] NRBC Pct Auto 0.0 0.0 - 0.2 /100WBC [facility] Neutrophils Absolute Auto 3.8 2.0 - 8.3 x10*3/uL [facility] Imm Gran Abs Auto 0.01 0.00 - 0.03 X10*3/uL [facility] Lymphocytes Absolute Auto 2.4 1.2 - 4.9 X10*3/uL [facility] Monocytes Absolute Auto 0.5 0.1 - 1.2 X10*3/uL [facility] Eosinophils Absolute Auto 0.2 0.0 - 0.4 X10*3/uL [facility] Basophils Absolute Auto 0.1 0.0 - 0.2 X10*3/uL [facility] NRBC Abs Auto 0.000 0.0 - 0.012 X10*3/uL [facility] Blood Venous blood specimen / Unknown 03/08/2025 8:23 AM EST 03/08/2025 11:17 AM EST Demarcus Rodrigues MD LAB BLOOD ORDERABL ES Final Result Performing Organization Address [facility]/ZIP Co de Phone Number [facility] [address] [place] [phone] * Hepatitis C Antibody with Reflex to HCV, RNA, Quantitative, Real-Time PCR (03/08/2025 8:23 AM EST) Hepatitis C Antibody Nonreactive Nonreactive [facility] Comment:Antibodies to HCV no t detected; does not exclude early acuteHCV infection. Blood Venous blood specimen / Unknown 03/08/2025 8:23 AM EST 03/08/2025 11:17 AM EST Demarcus Rodrigues MD LAB BLOOD ORDERABL ES Final Result Performing Organization Address [facility]/ZIP Co de Phone Number [facility] [address] [place] [phone] * (ABNORMAL) Hemoglobin A1c (03/08/2025 8:23 AM EST) Hemoglobin A1c 7.4(H) <6.0 % [facility] Comment:Hemoglobin A1C Refer ence Range Adults: 4.8 - 6.0 % Non diabetic: < 6.0 % Goal: < 7.0 %Additional Action Suggested: > 8.0 %Note: Hemoglobin A1c results are invalid for patients with abnormal amounts of HbF. Blood transfusions may impact the HbA1c concentration in the patient sample. Estimated Average Glucose 166 mg/dL [facility] Comment:eAG = Estimated ave rage glucose which is %A1C expressed asaverage glucose, using the formula of the C8A-[id number] Glucose study (ADAG), Diabetes Care, Vol.31,#8,Nov. 2007 Blood Venous blood specimen / Unknown 03/08/2025 8:23 AM EST 03/08/2025 11:17 AM EST Demarcus Rodrigues MD LAB BLOOD ORDERABL ES Final Result [facility] [address] [place] [phone] * (ABNORMAL) Lipid Panel, Standard (03/08/2025 8:23 AM EST) Triglycerides 158(H) <150 mg/dL [facility] Comment:Desirable Triglyceri de: less than 150 mg/dLBorderline High Triglyceride 150-199 mg/dLHigh Triglyceride: 200-499 mg/dLVery High Triglyceride: greater than or equal to 5OO mg/dL Cholesterol 128 <200 mg/dL [facility] Comment:Desirable Cholestero l: less than 200 mg/dLBorderline High Cholesterol: 200-239 mg/dLHigh Cholesterol: greater than 239 mg/dL LDL Cholesterol Calculated 48 <100 mg/dL [facility] Comment:Desirable LDL: less than 100 mg/dLNear Optimal/Above Optimal LDL: 110- 129 mg/dLBorderline High LDL: 130-159 mg/dLHigh LDL: 160-189 mg/dLVery High LDL: greater than or equal to 190 mg/dL HDL Cholesterol 49 >40 mg/dL [facility] Comment:Desirable HDL: great er than 40 mg/dL Note: This HDL assay may give artificially low results in patients with liver disease. Blood Venous blood specimen / Unknown 03/08/2025 8:23 AM EST 03/08/2025 11:17 AM EST us Demarcus Rodrigues MD LAB BLOOD ORDERABL ES Final Result [facility] [address] [place] [phone] * (ABNORMAL) Comprehensive Metabolic Panel (03/08/2025 8:23 AM EST) Sodium 142 135 - 145 mmol/L [facility] Potassium 4.8 3.3 - 5.1 mmol/L [facility] Chloride 107 96 - 108 mmol/L [facility] Carbon Dioxide 29 22 - 29 mmol/L [facility] Anion Gap 11(L) 12 - 20 [facility] Urea Nitrogen (BUN) 13 9 - 16 mg/dL [facility] Creatinine, Serum 0.86 0.5 - 1.4 mg/dL [facility] Estimated Glomerular Filt Rate >60 [facility] Comment:Chronic Kidney Disea se: Estimated GFR < 60 mL/min/1.17g2Uqbcbs Kidney Disease: Estimated GFR < 15 mL/min/1.73m2 Glucose 134(H) 60 - 115 mg/dL [facility] Calcium 9.8 8.4 - 10.2 mg/dL [facility] Bilirubin, Total 0.3 0.0 - 1.0 mg/dL [facility] Aspartate Amino Transferase 25 5 - 31 U/L [facility] Alanine Aminotransferase 16 0 - 31 U/L [facility] Total Protein 7.2 6.5 - 8.0 g/dL [facility] Albumin Level 4.5 3.5 - 5.0 g/dL [facility] Alkaline Phosphatase 59 39 - 117 U/L [facility] Blood Venous blood specimen / Unknown 03/08/2025 8:23 AM EST 03/08/2025 11:17 AM EST Demarcus Rodrigues MD LAB BLOOD ORDERABL ES Final Result [facility] [address] [place] [phone] * Hm Diabetes Eye Exam (03/07/2025 9:06 AM EST) Historical Provider HEALTH MAINTENANCE Final Result * (ABNORMAL) Cologuard?? colon cancer screening (02/05/2025 10:07 AM EDT) Cologuard Result Positive( A) Negative 02/12/2025 11:06 AM EDT [facility] (CLIA #:[id number]) Comment: The Cologuard Plus (TM) test was performed on this specimen. POSITIVE TEST RESULT. A positive (abnormal) Cologuard Plus result means the patient has a ypeysx-wnys-lddlgyc chance of having colorectal cancer (CRC) or [...] a 91% specificity (Cologuard Plus Clinician Brochure. [employer] (FIG). [place], [place] Visit [email or web address].[email or web address] for more test information, references, warnings, and precautions. Stool specimen (specimen) 02/05/2025 10:07 AM EDT 02/06/2025 1:34 PM EDT Demarcus Rodrigues MD LAB MOLECULAR DIAG NOSTICS ORDERABLES Final Result [facility] (CLIA #:[id number]) [address] [place] [address], [place] [phone] from Last 3 Months Additional Health Concerns Active Problems Noted Date Diagnosed Date Help patients manage their type 2 diabetes 04/01 Weekly blood pressure task 04/01/2025 Help patients manage their type 2 diabetes 04/01 Patient has chronic kidney disease 04/01/2025 Weekly blood pressure task 04/01/2025 Patient has chronic kidney disease 04/01/2025 Weekly blood pressure task 04/04/2025 Weekly blood pressure task 04/04/2025 Patient has chronic kidney disease 04/04/2025 Patient has chronic kidney disease 04/04/2025 Weekly blood pressure task 04/10/2025 Weekly blood pressure task 04/10/2025 Patient has chronic kidney disease 04/10/2025 Patient has chronic kidney disease 04/10/2025 Weekly blood pressure task 04/10/2025 Weekly blood pressure task 04/10/2025 Patient has chronic kidney disease 04/10/2025 Patient has chronic kidney disease 04/10/2025 Weekly blood pressure task 04/18/2025 Weekly blood pressure task 04/18/2025 Patient has chronic kidney disease 04/18/2025 Patient has chronic kidney disease 04/18/2025 Weekly blood pressure task 04/24/2025 Weekly blood pressure task 04/24/2025 Patient has chronic kidney disease 04/24/2025 Patient has chronic kidney disease 04/24/2025 Weekly blood pressure task 04/29/2025 Weekly blood pressure task 04/29/2025 Patient has chronic kidney disease 04/29/2025 Patient has chronic kidney disease 04/29/2025 Weekly blood pressure task 04/29/2025 Weekly blood pressure task 04/29/2025 Patient has chronic kidney disease 04/29/2025 Patient has chronic kidney disease 04/29/2025 Weekly blood pressure task 04/29/2025 Weekly blood pressure task 04/29/2025 Patient has chronic kidney disease 04/29/2025 Patient has chronic kidney disease 04/29/2025 Insurance [employer] (O D-SNP) [place] [id number] Care Teams Jewel Cupping Machine Operator Relationship Specialty Start Date End Date Demarcus Wilks MD [address] [place] [phone] PCP - General Internal Medicine 01/18/25
--- OUTSIDE RECORDS SUMMARY | 2025-04-29 14:11 | XMS_ITS | Encounter Summary ---
Author Organization [employer] Address [address] [place] [address] 7t [place] [address] Care Team Providers Care Vascular Technologist Name Role Phone Demarcus Wilks MD Primary Care Prov ider Encounter Details Date Type Department Care Team (Late st Contact Info) Description 04/29/2025 Orders Only [facility] CHC MED & PEDS [address] [place], [place] [phone] Demarcus Wilks MD [address] [place] [address] Social History Tobacco Use Types Packs/Day Years [...] with others, in a hotel, in a intermediate, living outside on the street, on a [...] Description 05/16/2025 10:30 AM EST Office Visit [facility] CHC MED & PEDS [address] [place] [address] Demarcus Wilks MD [address] [place] [address] 06/28/2025 1:00 PM EST Office Visit [facility] OPTOMETRY [address] [place], [place] [phone] Hilary Frias OD [address] [place] [address] documented as of this encounter Goals Goal Patient Goal Type Associated Problems Recent Progress Patient-Stated? Author Help patients manage their type 2 diabetes Care Plan Help patients manage their type 2 diabetes Nataly Moraes MA Weekly blood pressure task Care Plan [...] Weekly blood pressure task No Jona Mcintosh [facility] Weekly blood pressure task Care Plan Weekly blood pressure task No Jona Mcintosh [facility] Patient has chronic kidney disease Care Plan Patient has chronic kidney disease No Jona Mcintosh [facility] Patient has chronic kidney disease Care Plan Patient has chronic kidney disease No Jona Mcintosh [facility] Weekly blood pressure task Care Plan Weekly blood pressure task No Rafiq, Js Weekly blood pressure task Care Plan Weekly blood pressure task No Rafiq, Js Patient has chronic kidney disease Care Plan Patient has chronic kidney disease No Rafiq Js Patient has chronic kidney disease Care Plan Patient has chronic kidney disease No Rafiq, Js Weekly blood pressure task Care Plan [...] Plan Weekly blood pressure task No Fidelina Vera, SALES MERCHANDISE ASSOCIATE Weekly blood pressure task Care Plan Weekly blood pressure task No Fidelina Vera, SALES MERCHANDISE ASSOCIATE Patient has chronic kidney disease Care Plan Patient has chronic kidney disease No Angelo Veraga, SALES MERCHANDISE ASSOCIATE Patient has chronic kidney disease Care Plan Patient has chronic kidney disease No Fidelina Vera, SALES MERCHANDISE ASSOCIATE Weekly blood pressure task Care Plan Weekly blood pressure task No Beena Buitrago, IVIS Weekly blood pressure task Care Plan Weekly blood pressure task No Beena Buitrago, IVIS Patient has chronic kidney disease Care Plan [...] chronic kidney disease No Beena Buitrago RN documented as of this encounter Visit Diagnoses Not on filedocumented in this encounter Additional Health Concerns Active Problems Noted Date [...] 04/29/2025 Patient has chronic kidney disease 04/29/2025 Assessment Noted Time PHQ-9 Depression Total Score: 11 025 2:48 PM EDT documented as of this encounter Care Teams Vascular Technologist Relationship Specialty Start Date End Date Demarcus Wilks MD [address] [place] [id number] PCP - General Internal Medicine 01/18/25 documented as of this encounter
--- OUTSIDE RECORDS SUMMARY | 2025-04-29 14:11 | XMS_ITS | Encounter Summary ---
Author Organization [employer] Address [address] [place] [address] 7t [place] [address] Care Team Providers Care Federal District Law Clerk Name Role Phone Demarcus Wilks MD Primary Care Prov ider Encounter Details Date Type Department Care Team (Late st Contact Info) Description 04/29/2025 Telephone [facility] CHC MED & PEDS [address] [place] [address] Beena Buitrago, IVIS [address] [place] [address] Social History Tobacco Use Types Packs/Day Years [...] with others, in a hotel, in a assisted, living outside on the street, on a [...] Description 05/16/2025 10:30 AM EST Office Visit [facility] CHC MED & PEDS [address] [place] [address] Demarcus Wilks MD [address] [place] [address] 06/28/2025 1:00 PM EST Office Visit [facility] OPTOMETRY [address] [place] [address] Hilary Frias, ZOILA [address] [place] [address] documented as of this encounter Goals Goal [...] Weekly blood pressure task No Jona Mcintosh [facility] Weekly blood pressure task Care Plan Weekly blood pressure task No Jona Mcintosh [facility] Patient has chronic kidney disease Care Plan Patient has chronic kidney disease No Jona Mcintosh [facility] Patient has chronic kidney disease Care Plan Patient has chronic kidney disease No Jona Mcintosh [facility] Weekly blood pressure task Care Plan Weekly [...] Weekly blood pressure task No Fidelina Vera MINING MANAGER Weekly blood pressure task Care Plan Weekly blood pressure task No Fidelina Vera, MINING MANAGER Patient has chronic kidney disease Care Plan Patient has chronic kidney disease No Angelo Veraga, MINING MANAGER Patient has chronic kidney disease Care Plan Patient has chronic kidney disease No Fidelina Vera, MINING MANAGER Weekly blood pressure task Care Plan Weekly [...] documented as of this encounter Care Teams Federal District Law Clerk Relationship Specialty Start Date End Date Demarcus Wilks MD [address] [place] [id number] PCP - General Internal Medicine 01/18/25 documented as of this encounter
--- OUTSIDE RECORDS SUMMARY | 2025-04-29 14:11 | XMS_ITS | Encounter Summary ---
Author Organization [employer] Address [address] [place] [address] 7t [place] [address] Care Team Providers Care Account Manager Sales Representative Name Role Phone Demarcus Wilks MD Primary Care Prov ider Encounter Details Date Type Department Care Team (Late st Contact Info) Description 04/24/2025 Telephone [facility] MED & PEDS [address] [place] [address] Beena Buitrago, IVIS [address] [place] [address] Social History Tobacco Use Types Packs/Day Years [...] encounter Miscellaneous Notes * Telephone Encounter - Beena Buitrago RN - 04/24/2025 12:14 PM EST Received a call from the [facility] pharmacy, regarding pt's Levothyroxine. Pt last had filled at an and there is nothing refillable in the chart. Pt currently taking same dose of 125 MCGS daily. Looked up the initial visit with PCP from 01/18 and medications were discussed and documented. Will task to PCP to order the Levothyroxine as soon as possible. documented in this encounter Plan of Treatment Upcoming Encounters Date Type Department Care Team (Late st Contact Info) Description 05/16/2025 10:30 AM EST Office Visit [facility] CHC MED & PEDS [address] [place], [place] [phone] Demarcus Wilks MD [address] [place] [address] 06/28/2025 1:00 PM EST Office Visit [facility] OPTOMETRY [address] [place] [address] Evansosmany Hilary, OD [address] [place] [address] documented as of this encounter Goals Goal [...] Plan Weekly blood pressure task No Jona Reagan [facility] Weekly blood pressure task Care Plan Weekly blood pressure task No Jona Reagan [facility] Patient has chronic kidney disease Care Plan Patient has chronic kidney disease No Jona Reagan [facility] Patient has chronic kidney disease Care Plan Patient has chronic kidney disease No Jona Reagan [facility] Weekly blood pressure task Care Plan Weekly blood pressure task No Js Conroy Weekly blood pressure task Care Plan Weekly [...] Plan Patient has chronic kidney disease No Maribel Conroymael Weekly blood pressure task Care Plan Weekly blood pressure task No Fidelina Vera LPN Weekly blood pressure task Care Plan Weekly blood pressure task No Fidelina Vera LPN Patient has chronic kidney disease Care Plan Patient has chronic kidney disease No Fidelina Vera LPN Patient has chronic kidney disease Care Plan Patient has chronic kidney disease No Fidelina Vera LPN Weekly blood pressure task Care Plan Weekly blood pressure task No Beena Buitrago, RN Weekly blood pressure task Care Plan [...] 04/24/2025 Patient has chronic kidney disease 04/24/2025 Assessment Noted Time PHQ-9 Depression Total Score: 11 02/28/ 025 2:48 PM EDT documented as of this encounter Care Teams Account Manager Sales Representative Relationship Specialty Start Date End Date Demarcus Wilks MD [address] [place] [id number] PCP - General Internal Medicine 01/18/25 documented as of this encounter
--- OUTSIDE RECORDS SUMMARY | 2025-04-29 14:11 | XMS_ITS | Encounter Summary ---
Author Organization [employer] Address [address] [place] [address] 7t [place] [address] Care Team Providers Care Supervisor Sintering Plant Name Role Phone Demarcus Wilks MD Primary Care Prov ider Encounter Details Date Type Department Care Team (Late st Contact Info) Description 03/08/2025 Orders Only [facility] CHC MED & PEDS [address] [place] [address] ProviderVanda MD Social History Tobacco Use Types Packs/Day Years [...] Description 05/16/2025 10:30 AM EST Office Visit [facility] CHC MED & PEDS [address] [place] [address] Demarcus Wilks MD [address] [place] [address] 06/28/2025 1:00 PM EST Office Visit [facility] OPTOMETRY [address] [place] [address] Hilary Frias, OD [address] [place] [address] documented as of this encounter Procedures Procedure Name Priority Date/Time Associated Diagnosis Comments DIABETES EYE EXAM Routine 03/07/2025 9:06 AM EST documented in this encounter Results * Diabetes Eye Exam (03/07/2025 9:06 AM EST) us Historical Provider HEALTH MAINTENANCE Final Result documented in this encounter Visit Diagnoses Not on filedocumented in this encounter Additional Health Concerns Assessment Noted Time PHQ-9 Depression Total Score: 11 025 2:48 PM EDT documented as of this encounter Care Teams Supervisor Sintering Plant Relationship Specialty Start Date End Date Demarcus Wilks MD [address] [place] [phone] PCP - General Internal Medicine 01/18/25 documented as of this encounter
--- OUTSIDE RECORDS SUMMARY | 2025-04-29 14:11 | XMS_ITS | Encounter Summary ---
Author Organization [employer] Address [address] [place] [address] 7t [place] [address] Care Team Providers Care Train Operator Name Role Phone Demarcus Wilks MD Primary Care Prov ider Reason for Visit * Reason Onset Date Comments pt1 02/04/2025 Encounter Details Date Type Department Care Team ([facility] st Contact Info) Description 02/04/2025 Telephone [facility] CHC MED & PEDS [address] [place], [place] [phone] Demarcus Wilks MD [address] [place] [address] pt1 Social History Tobacco Use Types Packs/Day [...] with others, in a hotel, in a half-way, living outside on the street, on a [...] Y/N: Yes Provider name or facility name: [address] Escort needed: Y/N: No Do you have a wheelchair: Y/N: No Visits: (2x month) documented in this encounter Plan of Treatment Upcoming Encounters Date Type Department Care Team ([facility] st Contact Info) Description 05/16/2025 10:30 AM EST Office Visit [facility] MED & PEDS [address] [place] [address] Demarcus Wilks MD [address] [place] [address] 06/28/2025 1:00 PM EST Office Visit [facility] OPTOMETRY [address] [place] [address] Tarka Hilary, OD [address] [place] [address] documented as of this encounter Visit Diagnoses Not on filedocumented in this encounter Additional Health Concerns Assessment Noted Time PHQ-9 Depression Total Score: 8 01/19/20 9:27 AM EDT documented as of this encounter Care Teams Train Operator Relationship Specialty Start Date End Date Demarcus Wilks MD [address] [place] [address] PCP - General Internal Medicine 01/18/25 documented as of this encounter
--- OUTSIDE RECORDS SUMMARY | 2025-04-29 14:11 | XMS_ITS | Encounter Summary ---
Author Organization [employer] Address [address] [place] [address] 7t [place] [address] Care Team Providers Care Multiple Knife Edge Trimmer Operator Name Role Phone Demarcus Wilks MD Primary Care Prov ider Encounter Details Date Type Department Care Team (Late st Contact Info) Description 04/29/2025 Orders Only [facility] CHC MED & PEDS [address] [place], [place] [phone] Demarcus Wilks MD [address] [place] [address] Social History Tobacco Use Types Packs/Day Years [...] Description 05/16/2025 10:30 AM EST Office Visit [facility] CHC MED & PEDS [address] [place] [address] Demarcus Wilks MD [address] [place] [address] 06/28/2025 1:00 PM EST Office Visit [facility] OPTOMETRY [address] [place], [place] [phone] Hilary Frias OD [address] [place] [address] documented as of this encounter Goals Goal [...] Weekly blood pressure task No Jona Mcintosh [facility] Weekly blood pressure task Care Plan Weekly blood pressure task No Jona Mcintosh [facility] Patient has chronic kidney disease Care Plan Patient has chronic kidney disease No Jona Mcintosh [facility] Patient has chronic kidney disease Care Plan Patient has chronic kidney disease No Jona Mcintosh [facility] Weekly blood pressure task Care [...] Weekly blood pressure task No Fidelina Vera, TECHNICAL PROGRAMS MANAGER Weekly blood pressure task Care Plan Weekly blood pressure task No Fidelina Vera, TECHNICAL PROGRAMS MANAGER Patient has chronic kidney disease Care Plan Patient has chronic kidney disease No Angelo Veraga, TECHNICAL PROGRAMS MANAGER Patient has chronic kidney disease Care Plan Patient has chronic kidney disease No Fidelina Vera, TECHNICAL PROGRAMS MANAGER Weekly blood pressure task Care Plan [...] documented as of this encounter Care Teams Multiple Knife Edge Trimmer Operator Relationship Specialty Start Date End Date Demarcus Wilks MD [address] [place] [id number] PCP - General Internal Medicine 01/18/25 documented as of this encounter
--- OUTSIDE RECORDS SUMMARY | 2025-04-29 14:11 | XMS_ITS | Encounter Summary ---
Author Organization [employer] Address [address] [place] [address] [address] [place] [address] Care Team Providers Care Corporate Travel Agent Name Role Phone Demarcus Wilks MD Primary Care Prov ider Reason for Visit * Reason Onset Date Comments Med Refill 02/27/2025 Encounter Details Date Type Department Care Team ([facility] st Contact Info) Description 02/27/2025 Refill [facility] CHC MED & PEDS [address] [place], [place] [phone] Demarcus Wilks MD [address] [place] [address] Neuropathy Social History Tobacco Use Types Packs/Day [...] with others, in a hotel, in a mcc, living outside on the street, on a [...] [facility] CHC MED & PEDS [address] [place] [address] Demarcus Wilks MD [address] [place] [address] 06/28/2025 1:00 PM EST Office Visit [facility] OPTOMETRY [address] [place] [address] Hilary Frias, OD [address] [place] [address] documented as of this encounter Visit Diagnoses Diagnosis Neuropathy Mononeuritis of unspecified site documented in this encounter Additional Health Concerns Assessment Noted Time PHQ-9 Depression Total Score: 8 01/19/20 25 9:27 AM EDT documented as of this encounter Care Teams Corporate Travel Agent Relationship Specialty Start Date End Date Demarcus Wilks MD [address] [place] [id number] PCP - General Internal Medicine 01/18/25 documented as of this encounter
== END 2025-04-29 12:44 | disposition home or self-care (01) ==
PROVIDERS: PCP Internal Medicine; Visit Provider Internal Medicine
DX: R19.5 Other fecal abnormalities (principal); Z80.0 Family history of malignant neoplasm of digestive organs
CPT/HCPCS: 99203

== ENCOUNTER → 2025-04-29 12:04 | Outpatient (BNVA) | payer OTHER, SELFPAY | PROVIDERS: PCP Internal Medicine; Visit Provider Internal Medicine | DX: R19.5 Other fecal abnormalities (principal); Z80.0 Family history of malignant neoplasm of digestive organs | CPT/HCPCS: 99202 ==